=== PATIENT | female | born 1985 ===

== ENCOUNTER 2018-08-02 09:54 | Emergency (ER) | payer OTHER ==
[~2018-08-02] VITALS: Ht 175.3 cm; Wt 181.4 kg
[~2018-08-02 09:54] MED LIST: ALBU90I INH; ALBU90OI61 INH; AMOX500 PO; BCP; CARI350 PO; CODGUAEL PO; DOCU100 PO; DOXY100 PO; FOLI400; HYDACE5 PO; IBUP800 PO; MEDR10 PO; MULVITMINE; NAPR500 PO; NAPR550 PO; OXYACE5T PO; PENVK500 PO; PRED20 PO; PROCODE120 PO; PROM25 PO; PSEU30 PO; RXNAPNA550 PO; RXPROCODSY PO; SULTRIDS PO; TRAM50 PO
[2018-08-02] MEDS ORDERED: Crutch1 EACH MISC (11:46)
[2018-08-02] MEDS ORDERED: Norco 5-325 Ta1 EACH PO (11:46)
== END 2018-08-02 11:55 | disposition home or self-care (01) ==
LOC: ER 09:54
DX: S82.61XA Displaced fracture of lateral malleolus of right fibula, initial encounter for closed fracture (principal); X58.XXXA Exposure to other specified factors, initial encounter; Y92.009 Unspecified place in unspecified non-institutional (private) residence as the place of occurrence of the external cause
CPT/HCPCS: 29515; 73610; 81025; 99283-25